=== PATIENT | female | born 1970 | race Caucasian/White ===

== ENCOUNTER 2018-06-03 12:25 | Emergency (ER) | payer OTHER ==
[2018-06-03] MEDS ORDERED: MORPHINE SULFATE 4 MG/ML SYRINGE IVP STA (12:58)
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
--- NOTE | 2018-06-03 13:18 | XR ---
EXAMINATION TYPE: XR shoulder complete RT DATE OF EXAM: 06/03/2018 CLINICAL HISTORY: pain TECHNIQUE: Three views of the right shoulder are obtained. COMPARISON: None FINDINGS: Glenohumeral prosthesis noted. Prosthesis appears to be intact. Bony fragmentation inferio r to the glenoid is of uncertain etiology and chronicity. There is no acute fracture/dislocation evid ent. The acromioclavicular and glenohumeral joint spaces appear mildly. The visualized ribs are int act and unremarkable. IMPRESSION: 1. Bony fragmentation inferior to the glenoid is of uncertain etiology and chronicity.
[2018-06-03 13:33] LABS: Basophils % (A) 1 %; Eosinophils # (A) 0.4 k/uL (0-0.7); Eosinophils % (A) 7 %; HCT 46.8 % (34.0-46.0); HGB 15.6 gm/dL (11.4-16.0); Lymphocytes # (A) 2.1 k/uL (1.0-4.8); Lymphocytes % (A) 38 %; MCH 31.1 pg (25.0-35.0); MCHC 33.3 g/dL (31.0-37.0); MCV 93.7 fL (80.0-100.0); Mean Platelet Volume 6.2; Monocytes # (A) 0.3 k/uL (0-1.0); Monocytes % (A) 5 %; Neutrophils # (A) 2.7 k/uL (1.3-7.7); Neutrophils % (A) 48 %; Platelet Count 461 k/uL (150-450); RDW 13.2 % (11.5-15.5); WBC 5.6 k/uL (3.8-10.6)
[2018-06-03 13:42] LABS: Anion Gap 6 mmol/L; Blood Urea Nitrogen 9 mg/dL (7-17); Calcium 10.2 mg/dL (8.4-10.2); Carbon Dioxide 29 mmol/L (22-30); Chloride 102 mmol/L (98-107); Glucose 97 mg/dL (74-99); Potassium 4.9 mmol/L (3.5-5.1); Prothrombin Time 10.2 sec (9.0-12.0); Sodium 137 mmol/L (137-145)
--- NOTE | 2018-06-03 14:44 | US ---
EXAMINATION TYPE: US venous doppler duplex UE RT DATE OF EXAM: 06/03/2018 COMPARISON: NONE CLINICAL HISTORY: Pain. Right arm pain x couple weeks SIDE PERFORMED: Right Grayscale, color doppler, spectral doppler imaging performed of the deep veins of the upper extremiti es. There is normal flow, compressibility and vascular waveforms. Right Arm: Appears negative for DVT IMPRESSION: No evidence for DVT at this time.
[2018-06-03] MEDS ORDERED: ACET/COD 300 MG/30 MG STARTER PACK 6 TAB BTL PO STA (14:55)
[2018-06-03] MEDS ORDERED: KETOROLAC 30 MG/ML 1 ML VIAL IVP STA (14:55)
[2018-06-03 15:19] VITALS: BP 133/88; PULSE 86; RESP 18; TEMP 98.7
== END 2018-06-03 15:17 | disposition home or self-care (01) ==
LOC: EC 12:25
DX: Z47.1 Aftercare following joint replacement surgery (principal); G89.29 Other chronic pain; M25.511 Pain in right shoulder; J45.909 Unspecified asthma, uncomplicated; F17.200 Nicotine dependence, unspecified, uncomplicated; Z96.611 Presence of right artificial shoulder joint; Z98.890 Other specified postprocedural states; Z79.51 Long term (current) use of inhaled steroids; Z79.1 Long term (current) use of non-steroidal anti-inflammatories (NSAID); Z79.899 Other long term (current) drug therapy; Z88.0 Allergy status to penicillin
CPT/HCPCS: 36415; 80048; 85025; 85610; 73030; 93971; 99284; 96374; 96375; J2270; J1885

== ENCOUNTER 2018-12-26 17:53 | Emergency (ER) | payer OTHER ==
[2018-12-26 17:57] VITALS: RESP 16; TEMP 97.8
[2018-12-26] MEDS ORDERED: KETOROLAC 30 MG/ML 1 ML VIAL IM STA (18:24)
--- NOTE | 2018-12-26 19:16 | XR ---
EXAMINATION TYPE: XR foot complete LT DATE OF EXAM: 12/26/2018 COMPARISON: NONE HISTORY: Foot pain TECHNIQUE: 3 views FINDINGS: There are plantar and Achilles calcaneal spurs. Metatarsals are intact. I see no fracture n or dislocation. IMPRESSION: Calcaneal spurring. No fracture.
--- NOTE | 2018-12-26 19:18 | XR ---
EXAMINATION TYPE: XR shoulder complete RT DATE OF EXAM: 12/26/2018 COMPARISON: NONE HISTORY: Shoulder pain TECHNIQUE: 3 views FINDINGS: There is right shoulder prosthesis. Components are in anatomic position. I see no fracture. There is focal pleural thickening and calcification in the lateral right upper lobe. IMPRESSION: No acute abnormality of the right shoulder.
--- NOTE | 2018-12-26 19:19 | XR ---
EXAMINATION TYPE: XR thoracic spine complete DATE OF EXAM: 12/26/2018 COMPARISON: NONE HISTORY: Pain TECHNIQUE: 4 views FINDINGS: Thoracic vertebra have normal alignment. There is posterior fusion surgery at T11 T12 L1. T here is vertebroplasty of T12 vertebral body. There is no thoracic paraspinal mass. IMPRESSION: Surgery in the lower thoracic spine. No acute bony abnormality.
--- NOTE | 2018-12-26 19:26 | ED ---
Fall HPI - General Chief Complaint: Fall Stated Complaint: fall Time Seen by Provider: 12/26/18 18:13 Source: patient Mode of arrival: wheelchair - History of Present Illness Initial Comments: 48-year-old female patient presents to the emergency department today for evaluation of right shoulder, mid back, and left ankle pain after experiencing a fall one week ago. Patient states that she had surgery to the spine and right shoulder and is concerned that she may have injured something. Patient states that the pain to her left ankle has been getting worse. States that it is making it difficult for her to walk. She denies hitting her head during the fall. Denies any loss of consciousness. She denies any neck pain. Denies any numbness or tingling to the lower extremities. Denies loss of bowel or bladder control. Denies any saddle anesthesia. Patient denies any headache, chest pain, shortness of breath, dizziness, weakness, abdominal pain, nausea, vomiting, or difficulties with bowel movements or urination. - Related Data Home Medications Medication Instructions Recorded Confirmed Albuterol Inhaler [Ventolin Hfa 1 - 2 puff INHALATION RT-QID PRN 06/03/18 06/03/18 Inhaler] Fluticasone/Salmeterol 1 puff INHALATION BID 06/03/18 06/03/18 [Fluticasone-Salmeterol 232-14] HYDROcodone/APAP 10-325MG [[place] 1 tab PO Q4-6H PRN 06/03/18 06/03/18 10-325] Ibuprofen [Motrin] 800 mg PO Q6H 06/03/18 06/03/18 Montelukast [Singulair] 10 mg PO DAILY 06/03/18 06/03/18 Multivitamins, Thera [Multivitamin 1 tab PO DAILY 06/03/18 06/03/18 (formulary)] buPROPion HCL [Wellbutrin SR] 150 mg PO BID 06/03/18 06/03/18 Previous Rx's Medication Instructions Recorded Ibuprofen [Motrin] 600 mg PO Q8HR PRN #30 tab 06/03/18 Allergies Allergy/AdvReac Type Severity Reaction Status Date / Time Penicillins Allergy Anaphylaxis Verified 12/26/18 17:56 Review of Systems ROS Statement: Those systems with pertinent positive or pertinent negative responses have been documented in the HPI. ROS Other: All systems not noted in ROS Statement are negative. Past Medical History Past Medical History: Asthma History of Any Multi-Drug Resistant Organisms: None Reported Past Surgical History: Cholecystectomy, Orthopedic Surgery Additional Past Surgical History / Comment(s): Multiple orthopedic surgeries Past Psychological History: No Psychological Hx Reported Smoking Status: Current every day smoker Past Alcohol Use History: None Reported Past Drug Use History: None Reported General Exam Limitations: no limitations General appearance: alert, in no apparent distress, other (Physical well- developed, well-nourished adult female patient in no acute distress. Vital signs upon presentation are temperature 97.8F, pulse 102, respirations 16, blood pressure 121/78, pulse ox 96% on room air.) Eye exam: Present: normal appearance, PERRL, EOMI. Absent: scleral icterus, conjunctival injection, periorbital swelling ENT exam: Present: normal exam, normal oropharynx, mucous membranes moist Neck exam: Present: normal inspection, full ROM, other (Nontender, no step-off, no deformity to firm midline palpation of the posterior cervical spine. Full range of motion without pain or limitation.). Absent: tenderness, meningismus, lymphadenopathy Respiratory exam: Present: normal lung sounds bilaterally. Absent: respiratory distress, wheezes, rales, rhonchi, stridor Cardiovascular Exam: Present: regular rate, normal rhythm, normal heart sounds. Absent: systolic murmur, diastolic murmur, rubs, gallop, clicks GI/Abdominal exam: Present: soft, normal bowel sounds. Absent: distended, tenderness, guarding, rebound, rigid Extremities exam: Present: normal inspection, full ROM, tenderness (Over the medial and lateral heel on the left foot.), normal capillary refill, other (Skin to the left foot is pink, warm, dry. Cap refills less than 3 seconds. Pedal and posttibial pulses are 2+ and equal bilaterally.). Absent: pedal edema, joint swelling, calf tenderness Back exam: Present: normal inspection, vertebral tenderness (Thoracic), other (No bony step-off or deformity noted to for midline palpation of the spine.) Neurological exam: Present: alert, oriented X3, CN II-XII intact Psychiatric exam: Present: normal affect, normal mood Skin exam: Present: warm, dry, intact, normal color. Absent: rash Course Vital Signs 12/26/18 17:54 Temperature 97.8 F Pulse Rate 102 H Respiratory 16 Rate Blood Pressure 121/78 O2 Sat by Pulse 96 Oximetry Medical Decision Making - Radiology Data Radiology results: report reviewed, image reviewed 3 views of the left foot are obtained. Report was reviewed in its entirety. Impression by Dr. Bennett shows calcaneal spurring with no fracture. 3 views of the right shoulder obtained. Report was reviewed in its entirety. Impression by Dr. Bennett shows no acute abnormality of the right shoulder. 4 views of the thoracic spine were obtained. Report was reviewed in its entirety. Impression by Dr. Bennett shows surgery in the lower thoracic spine. No acute bony abnormality. Disposition Clinical Impression: Strain of thoracic back region, Right shoulder strain, Sprain of left foot Disposition: HOME SELF-CARE Condition: Good Instructions (If sedation given, give patient instructions): Muscle Strain (ED), Foot Sprain (ED) Additional Instructions: Continue Tylenol and Motrin for pain control. Apply ice to the painful areas. Rest painful areas. Follow-up with your primary care physician for recheck in 1-2 days. Return to the emergency department immediately for any new, worsening, or concerning symptoms. Is patient prescribed a controlled substance at d/c from ED?: No Referrals: Darline Wilde MD [Primary Care Provider] - 1-2 days Time of Disposition: 19:26
[2018-12-26 19:50] VITALS: BP 129/66; PULSE 84
--- NOTE | 2018-12-28 04:44 | CDI ---
Documentation Clarification OP Dear Jennifer FISCHER, [facility]: Please do addendum to ED report for MDM. Thank you, Lorenzo bauer Relations Mgr If you have any question, Please contact manager retail store at [phone] [facility]
== END 2018-12-26 19:48 | disposition home or self-care (01) ==
LOC: EC 17:53
DX: S46.911A Strain of unspecified muscle, fascia and tendon at shoulder and upper arm level, right arm, initial encounter (principal); S93.602A Unspecified sprain of left foot, initial encounter; S29.012A Strain of muscle and tendon of back wall of thorax, initial encounter; J45.909 Unspecified asthma, uncomplicated; F17.200 Nicotine dependence, unspecified, uncomplicated; Z79.899 Other long term (current) drug therapy; Z79.51 Long term (current) use of inhaled steroids; Z88.0 Allergy status to penicillin; W19.XXXA Unspecified fall, initial encounter
CPT/HCPCS: 99283; 96372; 29515; 72072; 73030; 73630; L4350; J1885

== ENCOUNTER 2019-07-02 16:33 | Emergency (ER) | payer OTHER ==
[2019-07-02 16:44] VITALS: RESP 18
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
[2019-07-02] MEDS ORDERED: KETOROLAC 30 MG/ML 1 ML VIAL IVP STA (18:28)
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
[2019-07-02] MEDS ORDERED: ACET/COD 300 MG/30 MG STARTER PACK 6 TAB BTL PO STA (19:20)
[2019-07-02 19:40] VITALS: BP 146/100; PULSE 98; TEMP 97.9
== END 2019-07-02 19:39 | disposition home or self-care (01) ==
LOC: EC 16:33
DX: S00.03XA Contusion of scalp, initial encounter (principal); J45.909 Unspecified asthma, uncomplicated; F17.200 Nicotine dependence, unspecified, uncomplicated; Z79.51 Long term (current) use of inhaled steroids; Z79.899 Other long term (current) drug therapy; Z88.0 Allergy status to penicillin; Y04.0XXA Assault by unarmed brawl or fight, initial encounter
CPT/HCPCS: 72125; 70450; 99284; 96374; J1885

== ENCOUNTER 2019-09-21 20:42 | Emergency (ER) | payer OTHER ==
[2019-09-21 21:28] VITALS: RESP 18; TEMP 98.1
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
--- NOTE | 2019-09-21 21:42 | XR ---
EXAMINATION TYPE: XR chest 1V DATE OF EXAM: 09/21/2019 COMPARISON: NONE HISTORY: Pain TECHNIQUE: Single view FINDINGS: Heart and mediastinum are normal. Lungs are clear of infiltrate. There is no heart failure. There are no hilar masses. There is right shoulder prosthesis. There is a plate fixing old fracture left humeral neck. There are small calcified granuloma right upper lobe. There is posterior fusion weller rgery at T11-T12 and L1. There is vertebroplasty of T12. IMPRESSION: No active cardiopulmonary disease.
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
[2019-09-21 22:28] VITALS: BP 108/86; PULSE 88
== END 2019-09-21 22:35 | disposition home or self-care (01) ==
LOC: EC 20:42
DX: S00.81XA Abrasion of other part of head, initial encounter (principal); S50.312A Abrasion of left elbow, initial encounter; S60.415A Abrasion of left ring finger, initial encounter; Z59.0 Homelessness; J32.9 Chronic sinusitis, unspecified; J45.909 Unspecified asthma, uncomplicated; F17.200 Nicotine dependence, unspecified, uncomplicated; Z88.0 Allergy status to penicillin; Z79.1 Long term (current) use of non-steroidal anti-inflammatories (NSAID); Z79.51 Long term (current) use of inhaled steroids; Z79.899 Other long term (current) drug therapy; Y04.8XXA Assault by other bodily force, initial encounter; W07.XXXA Fall from chair, initial encounter; Y92.89 Other specified places as the place of occurrence of the external cause
CPT/HCPCS: 70450; 70486; 71045; 72125; 99285